=== PATIENT | female | born 1990 | race Caucasian/White ===

== ENCOUNTER 2023-12-06 14:41 | Outpatient (CLI) | payer OTHER ==
[~2023-12-06] VITALS: Ht 165.1 cm; Wt 152.4 kg
[2023-12-06] MEDS ORDERED: PRENATAL TABLE1 EAC4 PO (14:45)
[2023-12-06] MEDS ORDERED: SYNTHROID200 MCG PO (14:46)
== END 2023-12-06 17:26 | disposition home or self-care (01) ==
LOC: OBS/DEL 14:41
PROVIDERS: ATTEND Obstetrics & Gynecology
DX: O26.893 Other specified pregnancy related conditions, third trimester (principal); Z3A.31 31 weeks gestation of pregnancy; N93.0 Postcoital and contact bleeding

== ENCOUNTER 2024-01-15 14:43 | Outpatient (CLI) | payer OTHER ==
[~2024-01-15 14:43] MED LIST: PRENATAL TABLE1 EAC4 PO; SYNTHROID200 MCG PO
== END 2024-01-15 16:33 | disposition home or self-care (01) ==
LOC: NST 14:43
PROVIDERS: ATTEND Obstetrics & Gynecology Maternal & Fetal Medicine
DX: Z34.83 Encounter for supervision of other normal pregnancy, third trimester (principal)